=== PATIENT | female | born 1985 | race Caucasian/White ===

== ENCOUNTER 2019-07-21 20:57 | Inpatient (IN) | payer SELFPAY ==
[2019-07-21 21:40] VITALS: BMI 31.1
[2019-07-21 21:40] LABS: Amnisure Test RUPTURE DETECTED (No Rupture)
[2019-07-21 21:41] LABS: Amnisure Internal Control QC ACCEPTABLE (ACCEPTABLE)
[2019-07-21] MEDS ORDERED: Ondansetron PF 4 MG/2 ML Vial IVP PRN (22:51)
[2019-07-21] MEDS ORDERED: Ibuprofen 800 MG TAB PO PRN (22:51)
[2019-07-21] MEDS ORDERED: HYDROcodone/Acetaminophen 5/325 mg Tablet PO PRN ×2 (22:51)
[2019-07-21] MEDS ORDERED: Lactated Ringer's 1,000 ML IV SCH (22:51)
[2019-07-21] MEDS ORDERED: Promethazine HCl 25 MG/ML VIAL IM PRN (22:51)
[2019-07-21] MEDS ORDERED: hydrALAZINE 20 MG/ML VIAL SLOW IVP PRN (22:51)
[2019-07-21] MEDS ORDERED: Lidocaine 1% (PF) 30 ML VIAL SC PRN (22:51)
[2019-07-21] MEDS ORDERED: Butorphanol Tartrate 1 MG/ML VIAL SLOW IVP PRN (22:51)
[2019-07-21] MEDS ORDERED: Betamet Acet/Betamet Na Ph 30 MG/5 ML VIAL ONE (22:56)
[2019-07-21] MEDS: Betamet Acet/Betamet Na Ph 30 MG/5 ML VIAL IM SCH (23:03)
[2019-07-21] MEDS: Lactated Ringer's 1,000 ML IV SCH (23:12)
[2019-07-21 23:14] LABS: Hemoglobin 13.6 g/dL (12.0-16.0); Mean Corpuscular Hemoglobin 32.9 pg (27.0-31.0); Mean Corpuscular Volume 93.8 fL (78.0-98.0); Mean Platelet Volume 7.2 fL (7.4-10.4); Platelet Count 193 thou/uL (130-400); RBC Distribution Width 12.6 % (11.5-14.5); Red Blood Cell (RBC) Count 4.13 mill/uL (4.20-5.40); White Blood Cell (WBC) Count 15.7 thou/uL (4.8-10.8)
[2019-07-21 23:52] LABS: HBSAg Index 0.22 S/CO (0-0.99); Hep B Surf Ag Non-Reactive S/CO (NonReactive)
[2019-07-21 23:56] LABS: Syphilis Antibody Nonreactive (Nonreactive); Syphilis Antibody Index 0.04 S/CO (<1.00 Non-Reactive)
[2019-07-22] MEDS: NS / Oxytocin 40 units/1000ml 1,000 ML IV PRN ×2 (02:15→04:30)
--- NOTE | 2019-07-22 02:35 | PDOC.OPDEL ---
OB Operative/Delivery Note Delivery Dr/Surgeon: Light. Radha BASURTO Pre-Delivery Diagnosis: active labor, other (SROM at 36.5) Procedure/Post Delivery Dx: spontaneous vaginal delivery Weeks gestation: 36 Anesthesia: none - Findings A Sex: female - 1 min: 8 - 5 min: 9 - Additional Findings/Plan Placenta delivered: spontaneous Repaired Obstetrical Laceration: 1st degree Estimated blood loss: 450mL Post delivery plan: routine recovery
--- NOTE | 2019-07-22 02:37 | PDOC.LDHP ---
Labor and Delivery H&P Chief complaint: loss of fluid (and contractions) HPI: Karen is a at 36.5w who reports a sudden loss of fluid at 1615 on 07/21/19. the fluid was clear. She starting having contractions following the ROM that were irregular. She waited at home for 4 hours after her membranes broke before arriving to the hospital. Normal movement. Current gestational age (weeks): 36 (5 days) Dating criteria: last menstrual period Grav: 2 Para: 0 Current complications: other (Elevated beta Hcg on sequential 1. NML NIPS. Seeing MFM for elevated risk of down syndrome.) Abnormal US findings: No Current medications: none Previous surgical history: none Allergies/Adverse Reactions: Allergies Allergy/AdvReac Type Severity Reaction Status Date / Time ranitidine [From Zantac] Allergy Intermediate Hives Verified 07/21/19 21:31 Social history: none - Physical Exam Vital signs reviewed and normal: yes Abnormal vital signs: Isolated mild range blood pressures. General: breathing through contractions Lungs: nonlabored breathing Abdomen: gravid Extremeties: no edema FHT: category 1 - Vaginal Exam cm dilated: 4 Effacement: 90% Station: -1 - OB Labs Blood type: A RH: negative Antibody Screen: negative HIV: negative RPR: negative HEPSAg: negative 1 hour GCT: negative GBS: negative Urine drug screen: negative Additional Labs: Elevated Beta Hcg on SSQ1 - Assessment L&D Assessment: labor (with SROM) - Plan Plan: admit to L&D ([facility] for [facility] notified of elevated risk of downs.)
[2019-07-22] MEDS: Lactated Ringer's 1,000 ML IV SCH ×3 (05:04→21:20)
[2019-07-22] MEDS ORDERED: Misoprostol 200 MCG TAB VAG PRN (05:26)
[2019-07-22] MEDS ORDERED: Adacel (T-DAP) 0.5 ML SYRINGE IM SCH (05:30)
[2019-07-22] MEDS ORDERED: Bisacodyl 10 MG SUPP PR PRN (05:30)
[2019-07-22] MEDS ORDERED: Milk Of Magnesia 30 ML UDCUP PO PRN (05:30)
[2019-07-22] MEDS ORDERED: HYDROcodone/Acetaminophen 5/325 mg Tablet PO PRN ×2 (05:30)
[2019-07-22] MEDS ORDERED: NS / Oxytocin 40 units/1000ml 1,000 ML IV SCH (05:30)
[2019-07-22] MEDS ORDERED: Sodium Chloride 0.9% 1,000 ML IV SCH (05:30)
[2019-07-22] MEDS ORDERED: hydrALAZINE 20 MG/ML VIAL SLOW IVP SCH (05:30)
[2019-07-22] MEDS: Ibuprofen 800 MG TAB PO SCH ×3 (05:37→21:20)
[2019-07-22] MEDS ORDERED: hydrALAZINE 20 MG/ML VIAL SLOW IVP PRN (06:00)
[2019-07-22] MEDS: Docusate Calcium (SURFAK) 240 MG CAP PO SCH ×2 (08:40→21:19)
[2019-07-22] MEDS: Ferrous Sulfate 325 MG TAB PO SCH ×2 (08:40→16:10)
--- NOTE | 2019-07-22 12:47 | PDOC.PP ---
Post Progress Note Post Day #: 1 Subjective: Patient is doing well and about to take a nap. she only slept for 2 hours. PO intake tolerated: yes Flatus: yes Ambulation: yes Vital Signs (12 hours) Temp Pulse Resp BP Pulse Ox 07/22/19 07:25 98.7 F 96 16 145/72 H 95 07/22/19 06:05 72 07/22/19 06:03 98.9 F 72 18 119/62 07/22/19 04:45 98.5 F 91 16 145/76 H Weight Weight 170 lb - Physical Examination General: NAD Respiratory: non-labored breathing Abdominal: no distention Extremities: negative homans (B) Skin: no rash Neurological: no gross focal deficits Psychiatric: A&Ox3, normal affect Result Diagrams: 07/21/19 22:57 Additional Labs: Post Labs Blood Type A POSITIVE 07/21/19 22:57 Hep Bs Antigen Non-Reactive S/CO (NonReactive) 07/21/19 22:57 (1) premature rupture of membranes, onset of labor more than 24 hours following rupture, first trimester Code(s): O42.111 - PRETRM NILTON ROM, ONSET LABOR > 24 HOURS FOL RUPT, FIRST TRI Status: Acute (2) (spontaneous vaginal delivery) Code(s): O80 - ENCOUNTER FOR FULL-TERM UNCOMPLICATED DELIVERY Status: Acute - Assessment/Plan A: g2 now p1 S/P following PPROM at 36.5 P: routine care visit Plan for discharge home tomorrow.
[2019-07-22] MEDS: Betamet Acet/Betamet Na Ph 30 MG/5 ML VIAL IM SCH (21:55)
[2019-07-23] MEDS: Ibuprofen 800 MG TAB PO SCH ×2 (06:06→14:44)
[2019-07-23] MEDS: Lactated Ringer's 1,000 ML IV SCH ×2 (06:08→07:36)
[2019-07-23] MEDS: Ferrous Sulfate 325 MG TAB PO SCH (07:34)
[2019-07-23] MEDS: Docusate Calcium (SURFAK) 240 MG CAP PO SCH (07:35)
[2019-07-23 08:19] VITALS: BP 118/63; TEMP 98.6
--- NOTE | 2019-07-24 08:15 | DIS ---
DATE OF ADMISSION: 07/21/2019 DATE OF DISCHARGE: 07/23/2019 ADMITTING DIAGNOSES: 1. Intrauterine at 36 weeks. 2. rupture of membranes. DISCHARGE DIAGNOSES: 1. Intrauterine at 36 weeks. 2. rupture of membranes. PROCEDURE: spontaneous vaginal delivery. HOSPITAL COURSE: The patient is a 34-year-old female, who was admitted to Labor and Delivery at 36 weeks and 5 days for rupture of membranes. The patient subsequently went into labor and delivered via uncomplicated spontaneous vaginal delivery. For complete details, please refer to her delivery note. Her course has been uncomplicated. Today, she is tolerating p.o., voiding on her own, having decreased lochia and good pain control. The patient has expressed interest and desire to discharge home today. Vital signs this morning; blood pressure is 121/60, temperature 98.7, pulse of 97, respiratory rate of 16. In general, she appears to be in no acute distress. She is alert, oriented, cooperative, and pleasant to interact with. Head is normocephalic, atraumatic. Fundus is firm. Extremities are nontender, nonedematous. ASSESSMENT AND PLAN: The patient is day #1. The patient is being discharged home with ibuprofen for pain control. She has instructions to follow up with Ms. Iveth Salamanca in 6 weeks or sooner if she experiences pain, increasing bleeding, or fever. Job ID: [id number]
== END 2019-07-23 16:10 | disposition home or self-care (01) | DRG 805 ==
LOC: L&D/OP 20:57 → L&D 22:21 → 3SW 07-22 04:42
PROVIDERS: ADMIT Obstetrics & Gynecology; ATTEND Obstetrics & Gynecology
PROC: 10E0XZZ Delivery of Products of Conception, External Approach (ICD-10-PCS; principal; 2019-07-21)
PROC: 0HQ9XZZ Repair Perineum Skin, External Approach (ICD-10-PCS; 2019-07-21)
DX: O42.013 Preterm premature rupture of membranes, onset of labor within 24 hours of rupture, third trimester (principal); O60.14X0 Preterm labor third trimester with preterm delivery third trimester, not applicable or unspecified; Z37.0 Single live birth; O70.0 First degree perineal laceration during delivery; Z88.8 Allergy status to other drugs, medicaments and biological substances; Z3A.36 36 weeks gestation of pregnancy
CPT/HCPCS: 36416; 51701; 84112; 85027; 86780; 86850; 86900; 86901; 87340; 99285; J0702

== ENCOUNTER 2020-08-16 15:07 | Observation (INO) | payer SELFPAY ==
[2020-08-16] MEDS ORDERED: Midazolam HCl 2 mg/2 ml Vial ONE (16:25)
[2020-08-16] MEDS ORDERED: Fentanyl 100 MCG/2 ML VIAL ONE ×2 (16:25→19:11)
[2020-08-16] MEDS ORDERED: Lidocaine 1% w/Epinephrine 1:100K 20 ML VIAL ONE (16:26)
[2020-08-16] MEDS ORDERED: Bupivacaine 0.25% HCL 30 ML VIAL ONE (16:26)
[2020-08-16] MEDS ORDERED: Ondansetron PF 4 MG/2 ML Vial ONE (16:52)
[2020-08-16] MEDS ORDERED: PROPOFOL 200 MG/20 ML VIAL ONE (16:52)
[2020-08-16] MEDS ORDERED: Ketorolac Tromethamine 30 MG/ML VIAL ONE (16:52)
[2020-08-16] MEDS ORDERED: Lidocaine 1% PF 5 ML VIAL ONE (16:52)
[2020-08-16] MEDS ORDERED: Glycopyrrolate 0.2 MG/ML 5 ML SYRINGE ONE (16:52)
[2020-08-16] MEDS ORDERED: Rocuronium Bromide 10 MG/ML (10ML VIAL) ONE (16:52)
[2020-08-16] MEDS ORDERED: Dexamethasone 20 MG/5 ML VIAL ONE (16:52)
[2020-08-16] MEDS ORDERED: Dextrose 50% Abboject 50 ML SYRINGE SLOW IVP PRN (18:49)
[2020-08-16] MEDS ORDERED: Mag-Al 1200 mg/1200 mg/30 ML UDCUP PO PRN (18:49)
[2020-08-16] MEDS ORDERED: Promethazine HCl 25 MG/ML VIAL IM PRN (18:49)
[2020-08-16] MEDS ORDERED: hydrALAZINE 20 MG/ML VIAL SLOW IVP PRN (18:49)
[2020-08-16] MEDS ORDERED: Dextrose 5% in Water 1,000 ML IV PRN (18:49)
[2020-08-16] MEDS ORDERED: Calcium Carbonate 500 MG ChewTAB PO PRN (18:49)
[2020-08-16] MEDS ORDERED: Ibuprofen 200 MG TAB PO PRN (20:26)
[2020-08-16] MEDS ORDERED: traMADol HCl 50 MG TAB PO PRN ×2 (20:27)
[2020-08-16] MEDS: Ondansetron PF 4 MG/2 ML Vial IVP PRN (20:52)
[2020-08-16] MEDS: Piperacillin/Tazobactam 3.375 GM in Sodium Chloride 0.9% 100 ML IVPB SCH (23:21)
[2020-08-16] MEDS: Acetaminophen 325 MG TAB PO SCH (23:22)
[2020-08-16] MEDS: Ketorolac Tromethamine 30 MG/ML VIAL IVP SCH (23:23)
[2020-08-17 04:33] VITALS: BMI 25.6
[2020-08-17] MEDS: Piperacillin/Tazobactam 3.375 GM in Sodium Chloride 0.9% 100 ML IVPB SCH ×4 (05:35→23:27)
[2020-08-17] MEDS: Ketorolac Tromethamine 30 MG/ML VIAL IVP SCH ×4 (05:36→23:26)
[2020-08-17] MEDS: Acetaminophen 325 MG TAB PO SCH (05:36)
[2020-08-17 05:58] LABS: #Lymphocytes 0.7 thou/uL (1.20-3.40); #Monocytes 0.5 thou/uL (0.11-0.59); #Neutrophils 7.9 thou/uL (1.40-6.50); %Basophils 0.2 % (0.0-1.0); %Eosinophils 0.2 % (0.0-10.0); %Lymphocytes 7.2 % (21.0-51.0); %Monocytes 5.9 % (0.0-10.0); %Neutrophils 86.5 % (42.0-75.0); Hemoglobin 14.1 g/dL (12.0-16.0); Mean Corpuscular HGB CONC 33.7 g/dL (32.0-36.0); Mean Corpuscular Volume 94.8 fL (78.0-98.0); Mean Platelet Volume 7.6 fL (7.4-10.4); Platelet Count 215 thou/uL (130-400); RBC Distribution Width 11.6 % (11.5-14.5); White Blood Cell (WBC) Count 9.1 thou/uL (4.8-10.8)
[2020-08-17 06:13] LABS: ALT (SGPT) 1079 U/L (8-55); AST (SGOT) 954 U/L (5-34); Albumin 4.1 g/dL (3.5-5.0); Alkaline Phosphatase 454 U/L (40-110); Anion Gap 15 mmol/L (10-20); BUN (Urea Nitrogen) 10 mg/dL (7.0-18.7); Bilirubin, Total 3.9 mg/dL (0.2-1.2); Calc. Creatinine Clearance 101 mL/min (70-130); Calcium 9.3 mg/dL (7.8-10.44); Carbon Dioxide 23 mmol/L (22-29); Chloride 105 mmol/L (98-107); Globulin 3.1 g/dL (2.4-3.5); Glucose 150 mg/dL (70-105); Lipase 12 U/L (8-78); Potassium 3.9 mmol/L (3.5-5.1); Protein, Total 7.2 g/dL (6.0-8.3); Sodium 139 mmol/L (136-145)
[2020-08-17] MEDS ORDERED: Enoxaparin Sodium 40 MG/0.4 ML SYRINGE SC SCH (09:00)
[2020-08-17] MEDS ORDERED: Sodium Chloride 0.9% 100 ML ONE (12:11)
[2020-08-17] MEDS ORDERED: Piperacillin/Tazobactam 3.375 GM VIAL ONE (12:11)
[2020-08-17] MEDS ORDERED: Indomethacin 50 MG SUPP ONE (12:44)
[2020-08-17] MEDS ORDERED: Iothalamate Meglumine 60% 50 ML VIAL FS ONE (12:45)
[2020-08-17] MEDS ORDERED: Midazolam HCl 2 mg/2 ml Vial ONE (12:58)
[2020-08-17] MEDS ORDERED: Fentanyl 100 MCG/2 ML VIAL ONE (12:59)
[2020-08-17] MEDS ORDERED: Dexamethasone 20 MG/5 ML VIAL ONE (13:09)
[2020-08-17] MEDS ORDERED: Rocuronium Bromide 10 MG/ML (10ML VIAL) ONE (13:09)
[2020-08-17] MEDS ORDERED: PROPOFOL 200 MG/20 ML VIAL ONE (13:09)
[2020-08-17] MEDS ORDERED: Ondansetron PF 4 MG/2 ML Vial ONE (13:09)
[2020-08-17] MEDS ORDERED: Lidocaine 1% PF 5 ML VIAL ONE (13:09)
[2020-08-17] MEDS ORDERED: SUGAMMADEX SODIUM 200 MG/2 ML VIAL ONE (13:47)
[2020-08-17] MEDS ORDERED: Promethazine HCl 25 MG/ML VIAL SLOW IVP PRN (14:11)
[2020-08-17] MEDS ORDERED: Promethazine HCl 25 MG/ML VIAL IM PRN (14:11)
[2020-08-17] MEDS ORDERED: Ondansetron HCl/PF 4 MG/2 ML Vial IVP PRN (14:11)
[2020-08-17] MEDS: Ondansetron PF 4 MG/2 ML Vial IVP PRN (16:34)
[2020-08-18 05:29] LABS: #Lymphocytes 1.8 thou/uL (1.20-3.40); #Monocytes 0.9 thou/uL (0.11-0.59); #Neutrophils 8.3 thou/uL (1.40-6.50); %Basophils 0.3 % (0.0-1.0); %Eosinophils 0.1 % (0.0-10.0); %Lymphocytes 16.5 % (21.0-51.0); %Monocytes 8.2 % (0.0-10.0); %Neutrophils 74.9 % (42.0-75.0); Mean Corpuscular HGB CONC 34.2 g/dL (32.0-36.0); Mean Corpuscular Hemoglobin 32.6 pg (27.0-31.0); Mean Corpuscular Volume 95.4 fL (78.0-98.0); Mean Platelet Volume 7.5 fL (7.4-10.4); Platelet Count 147 thou/uL (130-400); RBC Distribution Width 11.5 % (11.5-14.5); Red Blood Cell (RBC) Count 3.68 mill/uL (4.20-5.40); White Blood Cell (WBC) Count 11.1 thou/uL (4.8-10.8)
[2020-08-18 05:53] LABS: ALT (SGPT) 673 U/L (8-55); AST (SGOT) 223 U/L (5-34); Albumin 3.6 g/dL (3.5-5.0); Alkaline Phosphatase 347 U/L (40-110); Anion Gap 10 mmol/L (10-20); BUN (Urea Nitrogen) 8 mg/dL (7.0-18.7); Calc. Creatinine Clearance 111 mL/min (70-130); Calcium 8.6 mg/dL (7.8-10.44); Carbon Dioxide 27 mmol/L (22-29); Chloride 109 mmol/L (98-107); Globulin 2.5 g/dL (2.4-3.5); Glucose 103 mg/dL (70-105); Magnesium 2.1 mg/dL (1.6-2.6); Potassium 4.3 mmol/L (3.5-5.1); Protein, Total 6.1 g/dL (6.0-8.3); Sodium 142 mmol/L (136-145)
[2020-08-18] MEDS: Ketorolac Tromethamine 30 MG/ML VIAL IVP SCH (06:22)
[2020-08-18] MEDS: Piperacillin/Tazobactam 3.375 GM in Sodium Chloride 0.9% 100 ML IVPB SCH (06:23)
[2020-08-18 08:38] VITALS: BP 118/69; TEMP 98
== END 2020-08-18 10:37 | disposition home or self-care (01) ==
LOC: SDC 15:07 → SURG B 18:49
PROVIDERS: ADMIT Surgery; ATTEND Surgery
PROC: 0FT44ZZ Resection of Gallbladder, Percutaneous Endoscopic Approach (ICD-10-PCS; principal; 2020-08-16)
PROC: 0F798ZZ Dilation of Common Bile Duct, Via Natural or Artificial Opening Endoscopic (ICD-10-PCS; 2020-08-17)
PROC: 0FC98ZZ Extirpation of Matter from Common Bile Duct, Via Natural or Artificial Opening Endoscopic (ICD-10-PCS; 2020-08-17)
DX: K80.12 Calculus of gallbladder with acute and chronic cholecystitis without obstruction (principal); K83.8 Other specified diseases of biliary tract; K66.0 Peritoneal adhesions (postprocedural) (postinfection); J30.1 Allergic rhinitis due to pollen; Z87.891 Personal history of nicotine dependence; Z88.8 Allergy status to other drugs, medicaments and biological substances
CPT/HCPCS: 36415; 74330; 76000; 80053; 83690; 83735; 84100; 85025; 88304; 96365; 96375; 96376; G0378; J0690; J1100; J1610; J1885; J2250; J2405; J2543; J2704; J3010; J3490; Q9961; S0020